=== PATIENT | male | born 1990 | race Caucasian/White ===

== ENCOUNTER 2016-05-31 22:04 | Emergency (ER) | payer SELFPAY ==
[~2016-05-31] VITALS: Ht 177.8 cm; Wt 97.0 kg
[~2016-05-31 22:04] MED LIST: HYDR-3534 PO; LIDO2%S2 PO
[2016-05-31 22:07] VITALS: BP 141/106; PULSE 93; RESP 16; TEMP 98.4; O2SAT 98
[2016-05-31] MEDS ORDERED: LIDOCAINE HCL 1% 50 ML VIAL INFIL ONE (22:45)
--- NOTE | 2016-05-31 22:48 | PD ---
HPI . left pinky injury Chief Complaint: Laceration/Skin Injury Time Seen by Provider: 22:40 Travel History International Travel<30 days: No Contact w/Intl Traveler<30days: No Traveled to known affect area: No History of Present Illness HPI 25 yr old male was working with a saw and cut into his left distal pinky. He tells me that the finger is actually in half at the distal tip, but that is hard to visualize due to coagulation locally. He admits to pain in that area. He denies any other injury. Happened around 1 PM earlier today and patient continue working with the injury. He is uncertain of last tetanus date. He is right-hand dominant. [facility] Past Medical History Medical History: Denies Significant Hx Anxiety: Yes Depression: Yes Diabetes: No Diminished Hearing: No Gastrointestinal Disorders: Yes (IBS) Hypertension: Yes Respiratory: Yes (SEASONAL ALLERGIES) Immunizations Current: Yes (S[employer]OL SHOTS UTD) Tetanus Vaccination: > 5 Years Influenza Vaccination: No Past Surgical History Surgical History: No Previous Surgery Social History Alcohol Use: Yes (RARE) Tobacco Use: No Substance Use: No Allergies-Medications (Allergen,Severity, Reaction): Coded Allergies: No Known Allergies (Unverified , 05/31/16) Reported Meds & Prescriptions Reported Meds & Active Scripts Active No Active Prescriptions or Reported Medications Review of Systems General / Constitutional: No: Fever Eyes: No: Visual changes HENT: No: Headaches Cardiovascular: No: Chest Pain or Discomfort Respiratory: No: Shortness of Breath Gastrointestinal: No: Abdominal Pain Genitourinary: No: Dysuria Musculoskeletal: Positive: Pain (left pinky ) Skin: No Rash Neurologic: No: Weakness Psychiatric: No: Depression Endocrine: No: Polydipsia Hematologic/Lymphatic: No: Easy Bruising Physical Exam Narrative GENERAL: AAO x 3, no acute distress, Well-nourished, well-developed patient. SKIN: Warm and dry. No visible rashes or bruising. left pinky with injury to the distal tip, probably involving the distal tuft HEAD: Normocephalic and atraumatic. EYES: No scleral icterus. No injection or drainage. ENT: No nasal drainage noted. Mucous membranes pink. Airway patent. NECK: Supple, trachea midline. No JVD. CARDIOVASCULAR: Regular rate and rhythm without murmurs, gallops, or rubs. RESPIRATORY: Breath sounds equal bilaterally. No accessory muscle use. No rhonchi or rales. GASTROINTESTINAL: Abdomen soft, non-tender, nondistended. EXTREMITIES: No cyanosis or edema. finger movement is normal BACK: Nontender without obvious deformity. No CVA tenderness. PSYCH: AAO x 3, normal affect. Data Data Last Documented VS Vital Signs Date Time Temp Pulse Resp B/P Pulse Ox O2 Delivery O2 Flow Rate FiO2 05/31/16 22:07 98.4 93 16 141/106 98 Room Air MDM Medical Decision Making Medical Screen Exam Complete: Yes Emergency Medical Condition: Yes Medical Record Reviewed: Yes Differential Diagnosis finger laceration, finger fracture, less likely finger dislocation. Narrative Course 25 yr old male was working with a saw and cut into his left distal pinky. He tells me that the finger is actually in half at the distal tip, but that is hard to visualize due to coagulation locally. He admits to pain in that area. He denies any other injury. Happened around 1 PM earlier today and patient continue working with the injury. He is uncertain of last tetanus date. He is right-hand dominant. Patient seen and examined. He will need an x-ray to rule out any bony injury. Pending x-ray results we will determine if this will be closed or if hand surgery will be contacted. Tetanus will be administered. Case was transferred over to Dr. Whitaker as x-ray was still pending. Disposition will be determined by Dr. Whitaker Scripts No Active Prescriptions or Reported Meds Condition: Stable Kristen Chaney May 31, 2016 22:48
[2016-05-31] MEDS ORDERED: TETANUS/DIPHTHERIA TOXOID ADULT 0.5 ML VIAL IM ONE (23:00)
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
[2016-05-31] MEDS ORDERED: BACT800T5 PO (23:59)
--- NOTE | 2016-06-01 00:04 | PD ---
Physical Exam Time Seen by Provider: 23:55 Narrative PAC Kristen lara left this patient with me to check the x-ray and make a disposition on the patient. Data Data Last Documented VS Vital Signs Date Time Temp Pulse Resp B/P Pulse Ox O2 Delivery O2 Flow Rate FiO2 05/31/16 22:07 98.4 93 16 141/106 98 Room Air Orders Finger ([id number]) (05/31/16 22:42) Lidocaine 1% Inj (50 Ml) (Xylocaine 1% I (05/31/16 22:45) Tetanus/Diphtheria Tox Adult (Tetanus/Di (05/31/16 23:00) MDM Medical Record Reviewed: Yes Supervised Visit with SAAD: Yes Interpretation(s) The x-rays of the left fifth digit show no evidence of fracture dislocation. Differential Diagnosis Tuft fracture left fifth finger, avulsed nail left fifth finger, laceration left fifth finger Narrative Course The nail bed has been destroyed by the saw. The fingernail has been cut in the center and the pieces are not functional. Procedures Procedure Narrative A digital block was done and the pieces of the nail were removed. The nailbed was cleaned and bandaged. It did not require suturing. The patient tolerated the procedure well. Diagnosis Primary Impression: Nailbed laceration, finger Additional Impression: Fingernail avulsion, complete Additional Instruction: After 2 days and change the bandage daily. Keep the finger clean and dry. If there are any problems please return immediately to the emergency department. This will need an evaluation by hand surgeon because the nail may not grow out properly. Med/Other Pt SpecificInfo: Prescription(s) given Scripts Sulfamethoxazole-Trimethoprim (Bactrim DS)800-160 Mg Tab1 Tab PO BID #20 TAB Ref 0 Prov:Hector Whitaker MD 05/31/16 Disposition: 01 DISCHARGE HOME Condition: Stable Hector Whitaker MD Jun 01, 2016 00:04
== END 2016-06-01 00:12 | disposition home or self-care (01) ==
LOC: PHEFT 22:04
DX: S61.317A Laceration without foreign body of left little finger with damage to nail, initial encounter (principal); I10 Essential (primary) hypertension; W45.8XXA Other foreign body or object entering through skin, initial encounter; Z23 Encounter for immunization
CPT/HCPCS: 11730; 73140; 90471; 90714

== ENCOUNTER 2016-06-19 19:54 | Emergency (ER) | payer OTHER ==
[~2016-06-19 19:54] MED LIST changes: +BACT800T5 PO; -HYDR-3534 PO; -LIDO2%S2 PO
[2016-06-19 21:29] VITALS: RESP 20
[2016-06-19] MEDS ORDERED: ACETAMINOPHEN SUSP 160 MG/5 ML UDC PO ONE (22:45)
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
[2016-06-19] MEDS ORDERED: oxyCODONE/ACETAMINOPHEN 10 MG/325 MG TAB PO ONE (23:45)
[2016-06-20] MEDS ORDERED: PERC5TAB12 PO (00:05)
[2016-06-20 00:45] VITALS: RESP 18
[2016-06-20 01:00] VITALS: BP 129/86
== END 2016-06-20 01:00 | disposition home or self-care (01) ==
LOC: PHEFT 19:54
DX: S00.83XA Contusion of other part of head, initial encounter (principal); S20.212A Contusion of left front wall of thorax, initial encounter; S06.0X0A Concussion without loss of consciousness, initial encounter; R07.1 Chest pain on breathing; R11.0 Nausea; R51 Headache; I10 Essential (primary) hypertension; K58.9 Irritable bowel syndrome, unspecified; V43.52XA Car driver injured in collision with other type car in traffic accident, initial encounter; Y93.89 Activity, other specified; Y92.410 Unspecified street and highway as the place of occurrence of the external cause; Y99.8 Other external cause status
CPT/HCPCS: 70450; 70486; 71020

== ENCOUNTER 2017-02-12 19:03 | Emergency (ER) | payer SELFPAY ==
[~2017-02-12 19:03] MED LIST changes: -BACT800T5 PO; +PERC5TAB12 PO
[2017-02-12 19:25] VITALS: BP 148/93; PULSE 92; TEMP 98.9; O2SAT 98
[2017-02-12] MEDS ORDERED: SODIUM CHLOR 0.9% 1000 ML INJ 1,000 ML IV SCH (19:33)
--- NOTE | 2017-02-12 19:38 | PD ---
HPI Chief Complaint: Abdominal Pain Time Seen by Provider: 19:29 Travel History International Travel<30 days: No Contact w/Intl Traveler<30days: No Traveled to known affect area: No History of Present Illness HPI PATIENT IS C/O 2 DAYS OF DIFFUSE, CRAMPY ABDOMINAL PAIN, 8/10, ASSOC LOOSE STOOLS WITH OCC NAUSEA BUT WITHOUT VOMITING THUS FAR....PATIENT NOW STATES THAT PAIN IS MORE LOCALIZED TO LOWER QUADRANTS OVER LAST 10-12 HRS. NO ALLEVIATING OR AGGRAVATING FACTORS. PCP: DENIES ALL:DENIES PMHX:IBS, HTN PSHX:DENIES PFSH Past Medical History Anxiety: Yes Depression: Yes Diabetes: No Diminished Hearing: No Gastrointestinal Disorders: Yes (IBS) Hypertension: Yes Respiratory: Yes (SEASONAL ALLERGIES) Immunizations Current: Yes (SCHOOL SHOTS UTD) Social History Alcohol Use: No Tobacco Use: No Substance Use: No Allergies-Medications (Allergen,Severity, Reaction): Coded Allergies: No Known Allergies (Unverified Adverse Reaction, Unknown, 02/12/17) Reported Meds & Prescriptions Reported Meds & Active Scripts Active Review of Systems Except as stated in HPI: all other systems reviewed are Neg General / Constitutional: No: Fever Eyes: No: Visual changes HENT: No: Headaches Cardiovascular: No: Chest Pain or Discomfort Respiratory: No: Shortness of Breath Gastrointestinal: Positive: Nausea, Diarrhea, Abdominal Pain Genitourinary: No: Dysuria Musculoskeletal: No: Pain Skin: No Rash Neurologic: No: Weakness Psychiatric: No: Depression Endocrine: No: Polydipsia Hematologic/Lymphatic: No: Easy Bruising Physical Exam Narrative GENERAL: SKIN: Warm and dry. HEAD: Atraumatic. Normocephalic. EYES: Pupils equal and round. No scleral icterus. No injection or drainage. ENT: No nasal bleeding or discharge. Mucous membranes pink and moist. NECK: Trachea midline. No JVD. CARDIOVASCULAR: Regular rate and rhythm. RESPIRATORY: No accessory muscle use. Clear to auscultation. Breath sounds equal bilaterally. GASTROINTESTINAL: Abdomen soft, non-tender, nondistended. MUSCULOSKELETAL: Extremities without clubbing, cyanosis, or edema. No obvious deformities. NEUROLOGICAL: Awake and alert. No obvious cranial nerve deficits. Motor grossly within normal limits. Five out of 5 muscle strength in the arms and legs. Normal speech. PSYCHIATRIC: Appropriate mood and affect; insight and judgment normal. Data Data Last Documented VS Vital Signs Date Time Temp Pulse Resp B/P (MAP) Pulse Ox O2 Delivery O2 Flow Rate FiO2 02/12/17 20:33 16 02/12/17 19:48 98 Room Air 02/12/17 19:25 98.9 92 148/93 (111) Orders Orders Complete Blood Count With Diff (02/12/17 19:33) Comprehensive Metabolic Panel (02/12/17 19:33) Lipase (02/12/17 19:33) Urinalysis - C+S If Indicated (02/12/17 19:33) Ct Abd/Pel W/O Iv Contrast (02/12/17 19:33) Iv Access Insert/Monitor (02/12/17 19:33) Ecg Monitoring (02/12/17 19:33) Oximetry (02/12/17 19:33) NPO (02/12/17 19:33) Morphine Inj (Morphine Inj) (02/12/17 19:45) Ondansetron Inj (Zofran Inj) (02/12/17 19:45) Sodium Chlor 0.9% 1000 Ml Inj (Ns 1000 M (02/12/17 19:33) Labs Laboratory Tests Test 02/12/17 19:44 White Blood Count 8.1 TH/MM3 Red Blood Count 5.56 MIL/MM3 Hemoglobin 15.3 GM/DL Hematocrit 46.7 % Mean Corpuscular Volume 84.0 FL Mean Corpuscular Hemoglobin 27.4 PG Mean Corpuscular Hemoglobin Concent 32.7 % Red Cell Distribution Width 12.3 % Platelet Count 236 TH/MM3 Mean Platelet Volume 8.8 FL Neutrophils (%) (Auto) 58.9 % Lymphocytes (%) (Auto) 31.8 % Monocytes (%) (Auto) 6.9 % Eosinophils (%) (Auto) 1.8 % Basophils (%) (Auto) 0.6 % Neutrophils # (Auto) 4.8 TH/MM3 Lymphocytes # (Auto) 2.6 TH/MM3 Monocytes # (Auto) 0.6 TH/MM3 Eosinophils # (Auto) 0.1 TH/MM3 Basophils # (Auto) 0.0 TH/MM3 CBC Comment DIFF FINAL Differential Comment Urine Color YELLOW Urine Turbidity CLEAR Urine pH 5.5 Urine Specific [place] 1.030 Urine Protein NEG mg/dL Urine Glucose (UA) NEG mg/dL Urine Ketones NEG mg/dL Urine Occult Blood NEG Urine Nitrite NEG Urine Bilirubin NEG Urine Leukocyte Esterase NEG Urine Squamous Epithelial Cells 0-5 /hpf Microscopic Urinalysis Comment CULT NOT INDICATED Blood Urea Nitrogen 15 MG/DL Creatinine 1.00 MG/DL Random Glucose 96 MG/DL Total Protein 8.0 GM/DL Albumin 4.0 GM/DL Calcium Level 9.2 MG/DL Alkaline Phosphatase 83 U/L Aspartate Amino Transf (AST/SGOT) 32 U/L Alanine Aminotransferase (ALT/SGPT) 97 U/L Total Bilirubin 0.2 MG/DL Sodium Level 138 MEQ/L Potassium Level 3.8 MEQ/L Chloride Level 105 MEQ/L Carbon Dioxide Level 25.8 MEQ/L Anion Gap 7 MEQ/L Estimat Glomerular Filtration Rate 90 ML/MIN Lipase 118 U/L [facility] Medical Decision Making Medical Screen Exam Complete: Yes Emergency Medical Condition: Yes Medical Record Reviewed: Yes Differential Diagnosis IBS EXACERBATION V SBO V ILEUS V COLITIS V DIVERTIC Narrative Course CBC, LIPASE, LFT'S AND ELECTROLYTES WERE ALL WNL....CT IS NEG FOR SBO/ILEUS/ COLITIS OR DIVERTIC....IT DID SHOW NONOBSTRUCTING KIDNEY STONES AND UMBILICAL HERNIA REDUCIBLE Diagnosis Primary Impression: Kidney stones Additional Impression: UMBILICAL HERNIA REDUCIBLE Scripts Ondansetron Odt (Zofran Odt) 4 Mg Tab 4 MG SL Q6HR Y for Nausea/Vomiting, #20 TAB 0 Refills Prov: Manuelito Oh MD 02/12/17 Tramadol (Ultram) 50 Mg Tab 50 MG PO Q4H Y for PAIN, #14 TAB 0 Refills Prov: Manueltio Oh MD 02/12/17 Disposition: 01 DISCHARGE HOME Condition: Stable Manuelito Oh MD Feb 12, 2017 19:38
[2017-02-12] MEDS ORDERED: ONDANSETRON HCL 4 MG/2 ML VIAL IVP ONE (19:45)
[2017-02-12] MEDS ORDERED: MORPHINE SULFATE 4 MG/ML INJ IV PUSH ONE (19:45)
[2017-02-12 19:48] VITALS: RESP 18; O2SAT 98
[2017-02-12 19:50] LABS: BLOOD, URINE NEG (NEG); GLUCOSE,URINE NEG (NEG); KETONE, URINE NEG (NEG); NITRITE,URINE NEG (NEG); PH, URINE 5.5 (5.0-8.5)
[2017-02-12 19:52] LABS: AUTOMATED NEUTROPHIL # 4.8 TH/MM3 (1.8-7.7); BASOPHIL % 0.6 % (0.0-2.0); EOSINOPHIL # 0.1 TH/MM3 (0-0.4); EOSINOPHIL % 1.8 % (0.0-4.0); HEMATOCRIT 46.7 % (39.0-51.0); HEMO FLAGS DIFF FINAL; LYMPH % 31.8 % (9.0-44.0); LYMPHOCYTE # 2.6 TH/MM3 (1.0-4.8); MEAN CORPUSCULAR HEMOGLOBIN 27.4 PG (27.0-34.0); MEAN CORPUSCULAR HGB CONC 32.7 % (32.0-36.0); MONO % 6.9 % (0.0-8.0); NEUT % 58.9 % (16.0-70.0); PLATELET COUNT 236 TH/MM3 (150-450); RED BLOOD COUNT 5.56 MIL/MM3 (4.50-5.90); RED CELL DISTRIBUTION WIDTH 12.3 % (11.6-17.2); WHITE BLOOD COUNT 8.1 TH/MM3 (4.0-11.0)
[2017-02-12 19:59] LABS: CHLORIDE 105 MEQ/L (98-107); POTASSIUM 3.8 MEQ/L (3.5-5.1); SODIUM (NA) 138 MEQ/L (136-145)
[2017-02-12 20:03] LABS: ANION GAP 7 MEQ/L (5-15); BICARBONATE 25.8 MEQ/L (21.0-32.0); BLOOD UREA NITROGEN 15 MG/DL (7-18); COMMENT (UR) CULT NOT INDICATED; CULTURE IF INDICATED CULT NOT INDICATED; SQUAMOUS EPITHELIAL CELL URINE 0-5 /hpf (0-5); URINE COLOR YELLOW (YELLW/STRAW)
[2017-02-12 20:05] LABS: ALT (GPT) 97 U/L (12-78); AST (GOT) 32 U/L (15-37)
[2017-02-12 20:06] LABS: GLOMERULAR FILTRATION RATE 90 ML/MIN (>89)
[2017-02-12 20:07] LABS: TOTAL BILIRUBIN ADULT 0.2 MG/DL (0.2-1.0)
[2017-02-12 20:08] LABS: ALKALINE PHOSPHATASE 83 U/L (45-117)
--- NOTE | 2017-02-12 20:27 | RADRPT ---
EXAM DATE/TIME: 02/12/2017 19:51 [facility] COMPARISON: No previous studies available for comparison. INDICATIONS : Lower abdominal pain. ORAL CONTRAST: No oral contrast ingested. RADIATION DOSE: 25.67 CTDIvol (mGy) ; High dose protocol MEDICAL HISTORY : None SURGICAL HISTORY : None. ENCOUNTER: Initial ACUITY: 1 day PAIN SCALE: 8/10 LOCATION: Bilateral lower quadrant abdomen TECHNIQUE: Volumetric scanning of the abdomen and pelvis was performed. Using automated exposure control and ad justment of the mA and/or kV according to patient size, radiation dose was kept as low as reasonably achievable to obtain optimal diagnostic quality images. DICOM format image data is available electro nically for review and comparison. FINDINGS: LOWER LUNGS: The visualized lower lungs are clear. LIVER: The liver is enlarged and demonstrates diffuse fatty infiltration. There is no dilation of the biliar y tree. No calcified gallstones. SPLEEN: Mild splenomegaly is noted. PANCREAS: Within normal limits. KIDNEYS: Normal in size and shape. There is no mass or hydronephrosis. Several faint 2 mm calcifications are noted scattered throughout the kidneys consistent with nonobstructing calculi. ADRENAL GLANDS: Within normal limits. VASCULAR: There is no aortic aneurysm. BOWEL/MESENTERY: The stomach, small bowel, and colon demonstrate no acute abnormality. There is no free intraperitone al air or fluid. The appendix is normal. ABDOMINAL WALL: There is a tiny umbilical hernia containing only fat. RETROPERITONEUM: There is no lymphadenopathy. BLADDER: No wall thickening or mass. REPRODUCTIVE: Within normal limits. INGUINAL: There is no lymphadenopathy or hernia. MUSCULOSKELETAL: Within normal limits for patient age. CONCLUSION: 1. Scattered tiny 2 mm faint calcifications within both kidneys consistent with nonobstructing calcul i. 2. No acute obstructive uropathy. 3. Enlarged fatty liver. 4. Mild splenomegaly. 5. Tiny umbilical hernia containing only fat. Lorenzo Lindsey MD on February 12, 2017 at 20:22 Board Certified Radiologist. This report was verified electronically.
[2017-02-12 20:33] VITALS: RESP 16
[2017-02-12] MEDS ORDERED: TRAM50 PO (20:38)
[2017-02-12] MEDS ORDERED: ZOFR4TAB3 SL (20:38)
[2017-02-12 20:56] VITALS: BP 137/80
== END 2017-02-12 21:06 | disposition home or self-care (01) ==
LOC: PHED 19:03
DX: N20.0 Calculus of kidney (principal); K42.9 Umbilical hernia without obstruction or gangrene; R11.0 Nausea; I10 Essential (primary) hypertension
CPT/HCPCS: 74176; 80053; 81001; 83690; 85025; 96361; 96374; 96375; 99285; J2270; J2405; J7030